=== PATIENT | male | born 1955 | race Two or more races ===

== ENCOUNTER 2017-11-28 13:03 | Emergency (ER) | payer OTHER ==
[~2017-11-28] VITALS: Ht 167.6 cm; Wt 80.3 kg
[2017-11-28 13:15] VITALS: BP 189/107
[2017-11-28] MEDS ORDERED: Oxymetazoline 0.05% Na Spray 30ml NASAL ONE (14:00)
[2017-11-28 14:15] VITALS: BP 180/106
[2017-11-28 14:18] VITALS: BP 180/106
--- NOTE | 2017-11-28 17:00 | Emergency Room Report ---
History of Present Illness General Chief Complaint: General Complaint Source: Patient Present Illness HPI Patient is a 62-year-old male who presented after increased nosebleed. Patient gradual onset of symptoms. Patient reports having no prior symptoms similarly. Patient denies any locations of bleeding. Patient denied coughing or vomiting blood. The patient reported having blood coming from his nose to the posterior pharynx.The patient had placed ice water on his face with resolution of the bleeding. Allergies: Coded Allergies: No Known Allergies (Unverified , 11/28/17) Patient History Past Medical History: see triage record Reviewed Nursing Documentation: PMH: Agreed; PSxH: Agreed Nursing Documentation-PMH Past Medical History: No Stated History Review of Systems All Other Systems: negative except mentioned in HPI Physical Exam Vital Signs Date Time Temp Pulse Resp B/P (MAP) Pulse Ox O2 Delivery O2 Flow Rate FiO2 11/28/17 13:06 98.3 83 20 189/107 95 Room Air 98.2 General Appearance: well appearing, no apparent distress, alert, GCS 15 Head: normocephalic, atraumatic ENT: hearing grossly normal, normal voice, other - no active bleeding Neck: full range of motion, supple, other Respiratory: no respiratory distress, speaking full sentences Musculoskeletal: no calf tenderness Neurologic: normal gait Psychiatric: mood/affect normal Skin: no rash Medical Decision Making Diagnostic Impression: Primary Impression: Epistaxis ER Course Patient presented for nosebleed. Differential diagnosis included was not limited to anterior epistaxis, posterior epistaxis, coagulopathy, anemia among others. Patient has a benign exam and does not appear to require any further imaging or laboratory testing at this time. The patient was noted to have no active bleeding at this time. Patient was noted to have some anterior excoriated septal mucosa without active bleeding. Afrin nasal spray was instilled. Patient declined packing.The patient is advised follow-up with his primary care physician. Last Vital Signs Date Time Temp Pulse Resp B/P (MAP) Pulse Ox O2 Delivery O2 Flow Rate FiO2 11/28/17 14:18 98.2 71 20 180/106 98 Room Air 98.2 Status: improved Disposition: HOME, SELF-CARE Condition: Stable Referrals: NON PHYSICIAN (PCP) Patient Instructions: Roman Peters MD Nov 28, 2017 17:00
== END 2017-11-28 14:23 | disposition home or self-care (01) ==
LOC: EMR 13:55
DX: R04.0 Epistaxis (principal)
CPT/HCPCS: 99283

== ENCOUNTER 2019-07-21 10:18 | Emergency (ER) | payer SELFPAY ==
[~2019-07-21] VITALS: Ht 167.6 cm; Wt 82.1 kg
[2019-07-21 10:36] VITALS: BP 155/90
--- NOTE | 2019-07-21 10:39 | NUR ---
ED Nurse Note: Verbal order received from Dr. Patel to give 600 mg Motrin PO once.
--- NOTE | 2019-07-21 10:42 | NUR ---
ED Nurse Note: Patient came to ED from home c/o infected spot on right calf x 1 week. Patient states it started as a small bump and has gotten bigger. Patient received antibiotics at another clinic yesterday, but came to ED today because the area is getting worse.
[2019-07-21] MEDS ORDERED: Bactrim-DS 1 tab ORAL ONE (10:45)
[2019-07-21] MEDS ORDERED: Lidocaine 1% 10mg/ml/Epi 0.005mg/ml 30ml vial INJ ONE (11:00)
[2019-07-21] MEDS ORDERED: LET 3ml Soln TOPIC ONE (12:00)
--- NOTE | 2019-07-21 12:10 | NUR ---
ED Nurse Note: Applied LET to abcess and covered with tegaderm, per order from Dr. Patel.
--- NOTE | 2019-07-21 13:07 | Emergency Room Report ---
History of Present Illness General Chief Complaint: Skin Rash/Abscess Source: Patient, Family Member Present Illness HPI Patient presents with swelling and tenderness right posterior calf. The patient was seen by his physicians in the clinic yesterday and labs were obtained. He does not know the results. In addition he received an IM shot of Rocephin. His daughter advised him to come to the emergency department. The lesion has been draining pus. In the first days of this illness he felt he had chills and fever. There have been none for at least a week. He is able to ambulate. His work requires him to be standing on his feet. He states his tetanus is less than 10 years. He rates the pain in his calf 3/10, aching and worse when he is standing. It is nonradiating. There is no edema. Is a chronic rash for several years in that area of his calf. The diagnosis is not clear. He denies a history of diabetes. 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 Nursing Documentation: PMH: Agreed; PSxH: Agreed Nursing Documentation-PMH Hx Hypertension: Yes Review of Systems Constitutional: Reports: see HPI Gastrointestinal: Denies: nausea, vomiting Musculoskeletal: Reports: see HPI Skin: Reports: see HPI Neurological: Denies: numbness Endocrine: Reports: see HPI Physical Exam Vital Signs Date Time Temp Pulse Resp B/P (MAP) Pulse Ox O2 Delivery O2 Flow Rate FiO2 07/21/19 10:25 97.3 83 16 157/89 (111) 96 Room Air Sp02 EP Interpretation: reviewed, normal General Appearance: well appearing, no apparent distress, GCS 15 Head: normocephalic Eyes: bilateral eye normal inspection, bilateral eye PERRL ENT: moist mucus membranes Neck: full range of motion, supple Respiratory: normal inspection Cardiovascular #1: regular rate, rhythm, no edema Cardiovascular #2: 2+ radial (R), 2+ dorsalis pedis (R) Gastrointestinal: normal inspection Musculoskeletal: gait/station normal, calf tenderness - Localized to infected area Neurologic: alert, distal neuro normal, grossly normal Psychiatric: mood/affect normal Skin: rash - Maculopapular rash involving the posterior calf and lateral calf on the right-hand side, other - Fluctuant swollen lesion 2 x 3 cm right posterior calf Procedures Incision and Drainage Incision and Drainage : Consent: Verbal Site: R calf Blade Size: 11 I & D Procedure: betadine prep, sterile drapes applied, sterile dressing applied, gauze wick placed Wound Location: lower extremity Wound's Depth, Shape: into muscle, linear Wound Length (cm): 1 Wound Explored: contaminated - Pus in blood expressed. The wound is fairly deep. Irrigated w/ Saline (ccs): 20 Anesthesia: Lidocaine w/ Epi Volume Anesthetic (ccs): 3 Splint Applied?: No Patient Tolerated: Well Complications: None Medical Decision Making Diagnostic Impression: Primary Impression: Abscess ER Course Patient presents with lesion left posterior calf. Diagnosis is clinical. This is an abscess that needs to be incised and drained. In addition oral antibiotics are indicated. The underlying skin lesion is unclear. This could be contact dermatitis, fungal infection amongst others. Accu-Chek will be obtained. See procedure notes. Glucose 134. Patient tolerated incision and drainage well. Pain resolved. Discussed the need for return visit in 2 days for repacking or removal of packing. Patient stable for outpatient observation and treatment. Last Vital Signs Date Time Temp Pulse Resp B/P (MAP) Pulse Ox O2 Delivery O2 Flow Rate FiO2 07/21/19 14:00 97.3 87 19 146/87 100 Room Air Status: improved Disposition: HOME, SELF-CARE Condition: Improved Scripts Ibuprofen* (MOTRIN*) 600 Mg Tablet 600 MG ORAL Q6H PRN for For Pain, #20 TAB Prov: Fernando Patel MD 07/21/19 Bacitracin (Bacitracin) 28.4 Gm Oint...g. 1 APPLIC TOPIC BID, #20 GM Prov: Fernando Patel MD 07/21/19 Trimethoprim/Sulfamethoxazole 160/800* (BACTRIM DS TABLET*) 1 Each Tablet 1 TAB ORAL Q12H, #14 TAB 0 Refills Prov: Fernando Patel MD 07/21/19 Referrals: NON PHYSICIAN (PCP) Fernando Patel MD Jul 21, 2019 13:07
[2019-07-21] MEDS ORDERED: IBUPROFEN600 MG ORAL (13:50)
[2019-07-21] MEDS ORDERED: BACITRACIN15 GM TOPIC (13:50)
[2019-07-21] MEDS ORDERED: BACTRIM DS TAB1 EAC1 ORAL (13:50)
[2019-07-21 14:00] VITALS: BP 146/87
--- NOTE | 2019-07-21 14:00 | NUR ---
ER DISCHARGE NOTE: Patient cleared for DC by Dr. Patel. Patient verbalized understanding of DC instructions. ID band removed, patient AxO x 4, ambulates with steady gait, all belongings with patient.
--- NOTE | 2019-07-21 14:29 | NUR ---
Note undone in EDM - 07/21/19 at 1430 by NICOLE ER DISCHARGE NOTE: Patient cleared for DC by Dr. Patel. Patient verbalized understanding of DC instructions. ID band removed, patient AxO x 4, ambulates with steady gait, all belongings with patient.
== END 2019-07-21 14:00 | disposition home or self-care (01) ==
LOC: EMR 10:55
DX: L02.415 Cutaneous abscess of right lower limb (principal); I10 Essential (primary) hypertension
CPT/HCPCS: 10060; 82962; 99282

== ENCOUNTER → 2019-07-23 | Emergency (ER) | payer OTHER ==
[~2019-07-23] VITALS: Ht 157.5 cm; Wt 81.6 kg
[~2019-07-23] MED LIST: BACITRACIN15 GM TOPIC; BACTRIM DS TAB1 EAC1 ORAL; IBUPROFEN600 MG ORAL
--- NOTE | 2019-07-23 09:10 | NUR ---
ED Nurse Note: Patient came to ED from home for wound recheck. Patient was here 2 days ago and had the abcess drained. No complaints of pain, patient AxO x 4.
[2019-07-23 09:15] VITALS: BP 147/92
--- NOTE | 2019-07-23 09:22 | Emergency Room Report ---
History of Present Illness General Chief Complaint: Wound Recheck/Suture Removal Source: Patient Present Illness HPI Is a 64-year-old male who presents after recent incision and drainage of abscess. He denies any current pain. He had not been having any fever. Had been taking oral antibiotics. Patient denies any other complaints at this time. Pain had been improvement. Swelling had also been improving as well. Allergies: Coded Allergies: No Known Allergies (Unverified , 11/28/17) Patient History Past Medical History: see triage record Reviewed Nursing Documentation: PMH: Agreed; PSxH: Agreed Nursing Documentation-PMH Past Medical History: No Stated History Hx Hypertension: Yes Review of Systems All Other Systems: negative except mentioned in HPI Physical Exam Vital Signs Date Time Temp Pulse Resp B/P (MAP) Pulse Ox O2 Delivery O2 Flow Rate FiO2 07/23/19 09:05 98.2 82 18 147/92 (110) 95 Room Air General Appearance: well appearing, no apparent distress, alert, GCS 15 Head: normocephalic, atraumatic ENT: hearing grossly normal, normal voice Neck: full range of motion, supple Respiratory: no respiratory distress, speaking full sentences Musculoskeletal: no calf tenderness, other - healing wound Neurologic: oriented x3, normal gait Psychiatric: mood/affect normal Skin: no rash, other - healing wound no discharge or erythema Medical Decision Making Diagnostic Impression: Primary Impression: Encounter for wound re-check ER Course Patient presented for wound check. Differential diagnosis included was not limited to infected wound, nonhealed wound, neuroma, healed wound. Patient's wound does not appear to be of any evidence of infection. Packing was removed. Patient will be discharged home. He is advised to follow-up with his primary care physician for recheck in the next 2 to 3 days. Is to return if worse. This medical record is generated with [employer] multimedia production assistant software. There may be some multimedia production assistant discrepancies related to use of this software Last Vital Signs Date Time Temp Pulse Resp B/P (MAP) Pulse Ox O2 Delivery O2 Flow Rate FiO2 07/23/19 09:05 98.2 82 18 147/92 (110) 95 Room Air Status: improved Disposition: HOME, SELF-CARE Condition: Stable Patient Instructions: Wound Check Additional Instructions: Follow up with your doctor in 2-3 days. Return if worse. Roman Armijo MD Jul 23, 2019 09:22
[2019-07-23 09:25] VITALS: BP 147/92
== END | disposition home or self-care (01) ==
LOC: EMR 10:20
DX: T14.90XD Injury, unspecified, subsequent encounter (principal); X58.XXXD Exposure to other specified factors, subsequent encounter
CPT/HCPCS: 99281